=== PATIENT | female | born 2000 | race Caucasian/White ===

== ENCOUNTER → 2023-09-18 | Outpatient (CLI) | payer OTHER ==
[~2023-09-18] VITALS: Ht 149.9 cm; Wt 58.0 kg
[~2023-09-18] MED LIST: ATARAX 25MG25 MG/TAB PO; CLARITIN 1010 MG/TAB PO; JUNEL FE 1.5/301 TAB PO; LIDODERM 5% PATC1 EA TP; MULTI VITAMINS1 TAB PO; OSCAL 500 TAB500 MG; ZOLOFT 100MG100 MG PO
[2023-09-18 13:22] VITALS: BP 119/77; PULSE 86; TEMP 98
[2023-09-18 14:00] VITALS: BP 124/85; PULSE 93
== END ==
LOC: COL.RAD 13:07
DX: E04.1 Nontoxic single thyroid nodule (principal)